=== PATIENT | female | born 2005 | race African-American/Black ===

== ENCOUNTER 2024-03-17 18:17 | Emergency (ER) | payer SELFPAY ==
[~2024-03-17] VITALS: Ht 170.2 cm; Wt 158.0 kg
[2024-03-17 18:41] VITALS: O2SAT 100
[2024-03-17] MEDS ORDERED: TOPUD MT (21:17)
[2024-03-17 21:22] VITALS: BP 148/87; PULSE 80; RESP 16; TEMP 37.05852; O2SAT 100
== END 2024-03-17 21:37 | disposition home or self-care (01) ==
LOC: ER 18:17
DX: S09.90XA Unspecified injury of head, initial encounter (principal); X58.XXXA Exposure to other specified factors, initial encounter; Y93.89 Activity, other specified; Y92.89 Other specified places as the place of occurrence of the external cause; Y99.8 Other external cause status
CPT/HCPCS: 99282